=== PATIENT | female | born 1965 | race Caucasian/White ===

== ENCOUNTER 2017-10-10 14:45 | Outpatient (POV) | payer BC, SELFPAY | END 2017-10-10 16:21 | disposition home or self-care (01) | PROVIDERS: PCP Podiatrist; Visit Provider Podiatrist | DX: G57.62 Lesion of plantar nerve, left lower limb (principal); M72.2 Plantar fascial fibromatosis; M25.572 Pain in left ankle and joints of left foot | CPT/HCPCS: 99203; 73630 ==